=== PATIENT | male | born 1980 | race Caucasian/White ===

== ENCOUNTER 2020-07-15 16:57 | Emergency (ER) | payer SELFPAY ==
[~2020-07-15] VITALS: Ht 185.4 cm; Wt 90.7 kg
[2020-07-15 17:05] VITALS: BP 162/101
[2020-07-15 17:24] VITALS: BP 162/101
== END 2020-07-15 17:24 ==
LOC: MED 16:57
DX: Z04.1 Encounter for examination and observation following transport accident (principal); Z02.89 Encounter for other administrative examinations; V89.2XXA Person injured in unspecified motor-vehicle accident, traffic, initial encounter; Y93.89 Activity, other specified; Y92.89 Other specified places as the place of occurrence of the external cause; Y99.8 Other external cause status
CPT/HCPCS: 99283

== ENCOUNTER 2020-08-23 16:03 | Emergency (ER) | payer OTHER ==
[~2020-08-23] VITALS: Ht 185.4 cm; Wt 90.7 kg
[2020-08-23 16:16] VITALS: BP 129/80
--- NOTE | 2020-08-23 16:19 | NUR ---
C/O FEVER, COUGH,AL , BODY ACHE X 3 DAYS. EXPOSED TO CONFIRMED COVID + PATIENT. PMH: DENIES
--- NOTE | 2020-08-23 17:00 | NUR ---
COVID SWAB SENT TO LAB.
[2020-08-23 17:02] VITALS: BP 129/80
--- NOTE | 2020-08-23 17:02 | NUR ---
Patient discharged with v/s stable. Written and verbal after care instructions given and explained. Patient alert, oriented and verbalized understanding of instructions. Ambulatory with steady gait. All questions addressed prior to discharge. ID band removed. Patient advised to follow up with PMD. Rx of PROMETHAZINE&IBUPROFEN given. Patient educated on indication of medication including possible reaction and side effects. Opportunity to ask questions provided and answered.
--- NOTE | 2020-08-23 17:20 | NUR ---
[facility] in [facility] - 08/23/20 at 1739 by [email or web address] SWAB SENT TO LAB.
--- NOTE | 2020-08-25 08:35 | NUR ---
Covid results received from lab. Results = POSITIVE. Hard copy requested from lab and placed in infection controls mailbox.
== END 2020-08-23 17:02 | disposition home or self-care (01) ==
LOC: MED 16:03
DX: U07.1 COVID-19 (principal); R50.9 Fever, unspecified; R05 Cough; M79.10 Myalgia, unspecified site
CPT/HCPCS: 99283; U0003